=== PATIENT | male | born 1990 | race African-American/Black ===

== ENCOUNTER 2017-05-11 14:50 | Emergency (ER) | payer OTHER ==
[~2017-05-11] VITALS: Ht 180.3 cm; Wt 74.8 kg
[~2017-05-11 14:50] MED LIST: CYCLOBENZAPRINE10 MG ORAL; IBUPROFEN600 M1 PO; IBUPROFEN600 MG ORAL; NKM; NORCO 5-325 TA1 EACH ORAL
[2017-05-11] MEDS ORDERED: Bacitracin Oint UD TOPIC ONE (16:00)
[2017-05-11] MEDS ORDERED: Cephalexin 500mg cap ORAL ONE (16:00)
[2017-05-11] MEDS ORDERED: IBUPROFEN600 MG ORAL (16:16)
[2017-05-11] MEDS ORDERED: CEPHALEXIN500 MG ORAL (16:16)
[2017-05-11 16:26] VITALS: BP 127/81
[2017-05-11 16:31] VITALS: BP 127/81
--- NOTE | 2017-05-11 17:00 | Emergency Room Report ---
History of Present Illness General Chief Complaint: Laceration Source: Patient Present Illness HPI The patient is a 26 dull male presenting for right arm injury. This occurred just prior to arrival. He states that he swung his right forearm into a wall which had a nail sticking out. He then noticed pain and bleeding to the midforearm. Pain is now 5/10 dull ache. Does not radiate. Worse with touch. Last tetanus shot 3 years prior. He denies any other injury or symptoms Allergies: Coded Allergies: No Known Allergies (Unverified , 08/24/13) Patient History Past Medical History: see triage record Pertinent Family History: none Reviewed Nursing Documentation: PMH: Agreed, PSxH: Agreed Nursing Documentation-PMH Past Medical History: No Stated History Review of Systems All Other Systems: negative except mentioned in HPI Physical Exam Vital Signs Date Time Temp Pulse Resp B/P (MAP) Pulse Ox O2 Delivery O2 Flow Rate FiO2 05/11/17 15:43 98.4 55 16 127/81 100 Room Air Sp02 EP Interpretation: reviewed, normal General Appearance: no apparent distress, alert, GCS 15, non-toxic Head: normocephalic, atraumatic Eyes: bilateral eye normal inspection, bilateral eye PERRL ENT: hearing grossly normal, normal pharynx, no angioedema, normal voice Musculoskeletal: tender - TTP over the dorsal forearm where wound is Neurologic: alert, oriented x3, responsive, motor strength/tone normal, sensory intact, speech normal Psychiatric: judgement/insight normal, memory normal, mood/affect normal, no suicidal/homicidal ideation Skin: no rash, warm/dry, well hydrated, laceration - <1cm in diameter circular puncture of the L mid dorsal forearm. Through dermis. No bleeding Medical Decision Making PA Attestation Dr. Morgan is my supervising physician. Patient management was discussed with my supervising physician Diagnostic Impression: Primary Impression: Puncture wound ER Course The patient is a 26 dull male presenting for right arm injury Ddx considered include but not limited to fracture, tendon/ligament injury, avulsion, nerve damage PE: NAD <1cm in diameter circular puncture of the L mid dorsal forearm. Through dermis. No bleeding. Full AROM of wrist and fingers The wound is cleaned with normal saline and Betadine. Bacitracin applied with sterile dressing He is given prescription for Keflex and will be discharged home. ER precautions are given Last Vital Signs Date Time Temp Pulse Resp B/P (MAP) Pulse Ox O2 Delivery O2 Flow Rate FiO2 05/11/17 16:31 98.4 69 16 127/81 100 Room Air Status: improved Disposition: HOME, SELF-CARE Condition: Improved Scripts Ibuprofen* (MOTRIN*) 600 Mg Tablet 600 MG ORAL Q8H Y for For Pain, #30 TAB 0 Refills Prov: CANDICE GARG.Cristobal 05/11/17 Cephalexin* (KEFLEX*) 500 Mg Capsule 500 MG ORAL EVERY 6 HOURS, #28 CAP Prov: CANDICE GARG 05/11/17 Referrals: [facility] (PCP) Patient Instructions: Laceration Care, Adult, Puncture Wound Additional Instructions: I discussed my findings with the patient. All questions and concerns have been answered. Treatment and medication compliance have been addressed. I advised the patient that they need to follow up with PMD in 3-5 days. Return to ED if symptoms worsen, new symptoms arise such as fever, or if needed for any reason. Patient verbalized understanding of discharge instructions. CANDICE GARG May 11, 2017 17:00
== END 2017-05-11 16:25 | disposition home or self-care (01) ==
LOC: EMR 16:05
DX: S51.831A Puncture wound without foreign body of right forearm, initial encounter (principal); W22.8XXA Striking against or struck by other objects, initial encounter; Y92.89 Other specified places as the place of occurrence of the external cause
CPT/HCPCS: 99283